=== PATIENT | female | born 1945 | race Two or more races ===

== ENCOUNTER 2018-06-29 06:20 | Inpatient (IN) | payer OTHER ==
[2018-06-29] MEDS ORDERED: QUETIAPINE FUM200 M1 (06:31)
[2018-06-29] MEDS ORDERED: DIVALPROEX SOD500 M1 (06:31)
[2018-06-29] MEDS ORDERED: CLONAZEPAM0.5 M1 (06:32)
[2018-06-29] MEDS ORDERED: SERTRALINE HCL100 MG (06:32)
[2018-06-29] MEDS ORDERED: CLONAZEPAM1 M1 (06:33)
[2018-06-29] MEDS ORDERED: SYNTHROID50 MCG (06:34)
[2018-06-29] MEDS ORDERED: FORTAMET1000 MG (06:34)
[2018-06-29] MEDS ORDERED: ATENOLOL50 MG (06:34)
[2018-06-29] MEDS ORDERED: GLIPIZIDE ER10 MG (06:34)
[2018-06-29] MEDS ORDERED: SIMVASTATIN20 MG (06:35)
== END 2018-07-03 16:01 | disposition home or self-care (01) | DRG 493 ==
LOC: ER 06:20 → SEC-K 13:00 → SURG 13:00 → O/R 15:56 → SURG 17:28
PROVIDERS: Orthopaedic Surgery; ADMIT Internal Medicine
PROC: 30233N1 Transfusion of Nonautologous Red Blood Cells into Peripheral Vein, Percutaneous Approach (ICD-10-PCS; 2018-06-29)
PROC: 0PHG36Z Insertion of Intramedullary Internal Fixation Device into Left Humeral Shaft, Percutaneous Approach (ICD-10-PCS; 2018-06-30)
PROC: 0PBB0ZZ Excision of Left Clavicle, Open Approach (ICD-10-PCS; 2018-06-30)
PROC: 0LS40ZZ Reposition Left Upper Arm Tendon, Open Approach (ICD-10-PCS; 2018-06-30)
PROC: 0RQK0ZZ Repair Left Shoulder Joint, Open Approach (ICD-10-PCS; 2018-06-30)
PROC: 0PHD36Z Insertion of Intramedullary Internal Fixation Device into Left Humeral Head, Percutaneous Approach (ICD-10-PCS; principal; 2018-06-30 13:45)
DX: S42.242A 4-part fracture of surgical neck of left humerus, initial encounter for closed fracture (principal); S42.392A Other fracture of shaft of left humerus, initial encounter for closed fracture; D62 Acute posthemorrhagic anemia; S42.292A Other displaced fracture of upper end of left humerus, initial encounter for closed fracture; I10 Essential (primary) hypertension; M75.102 Unspecified rotator cuff tear or rupture of left shoulder, not specified as traumatic; M19.012 Primary osteoarthritis, left shoulder; W18.39XA Other fall on same level, initial encounter; Y93.89 Activity, other specified; Y92.098 Other place in other non-institutional residence as the place of occurrence of the external cause; Y99.8 Other external cause status

== ENCOUNTER 2018-07-09 21:55 | Inpatient (IN) | payer OTHER ==
[~2018-07-09] VITALS: Ht 61 cm; Wt 5.0 kg
[~2018-07-09 21:55] MED LIST: ATENOLOL50 MG; CLONAZEPAM0.5 M1; CLONAZEPAM1 M1; DIVALPROEX SOD500 M1; FORTAMET1000 MG; GLIPIZIDE ER10 MG; QUETIAPINE FUM200 M1; SERTRALINE HCL100 MG; SIMVASTATIN20 MG; SYNTHROID50 MCG
--- NOTE | 2018-07-09 22:26 | NUR ---
PTE SE RECIBE POR CONGESTIVE HEART FAILURE REFIERE PARAMEDICO Y FAMILIAR.
--- NOTE | 2018-07-09 22:30 | NUR ---
EVALUA PTE. SE ORIENTA A PTE Y FAMILIAR SOBRE TX MEDICO. PTE Y FAMILIAR REFIEREN COMPRENDER. SE COLECTAN MUESTRAS DE LABORATORIO BAJO MEDIDAS ASEPTICAS. SE NOTIFICAN MIGUELITO X. PENDIENTE ABG Y TERAPIAS RESPIRATORIAS.
--- NOTE | 2018-07-10 03:11 | NUR ---
SE RECIBE PACIENTE DE TURNO ANTEREIOR.EN CAMA CON LAS BARANDAS ELEVADAS. CONECTADA A MONIOR CARDIACO Y OXIMETRIA.ACOMPANADA POR FAMILIAR.AREA DE VENOPUNCION ESTA LIMPIA Y SECA,CARLOTTA DE EDEMA. SOLICITADAS,HOSSEIN ORDEN MEDICA 2 UNIDADES DE PRBC.PERMISO ESTA DEBIDAMENTE FIRMADO.
--- NOTE | 2018-07-10 08:39 | NUR ---
SE RECIBE PTE DEL TURNO ANTERIOR, LETARGICA, EN CAMA NIVEL MAS BAJO LOPEZ DE IDENIFICACION Y BARANDAS ELEVADAS POR PRECAUCION, CONECADA A MONITOR CARDIACO Y OXIMETRIA DE PULSO. SE OBSERVA CON BUEN PATRON RESPIRATORIO, AL MOMENO SATURANDO 100%. H/L EN MANO RT PATENTE Y CARLOTTA DE EDEMA O ERIEMA. PTE PENDIENTE A TRANSFUNDIR 2 U DE PRBC, SE RECIBE LLAMADA DE MS TRIVEDI A LAS 8:16 AM PARA NOTIFICAR DISPONIBILIDAD DE LA MISMA. PENDIENTE A CONSULTA CON DRA CEJA.
--- NOTE | 2018-07-10 09:00 | NUR ---
SE COMIENZA TRANSFUSION DE SANDER, POR EL MOMENTO PTE TOLERA LA MISMA Y NO PRESENTA SIGNOS O SINTOMAS DE REACCION ADVERSA.
== END 2018-07-19 16:52 | disposition home or self-care (01) | DRG 811 ==
LOC: ER 21:55 → ICU-2 07-10 09:52 → SEC-K 07-10 09:52 → ICU-2 07-10 11:21 → SEC-K 07-15 12:18 → MEDI 07-15 13:24
PROVIDERS: ADMIT Internal Medicine
PROC: BW40ZZZ Ultrasonography of Abdomen (ICD-10-PCS; 2018-07-10)
PROC: 30233N1 Transfusion of Nonautologous Red Blood Cells into Peripheral Vein, Percutaneous Approach (ICD-10-PCS; 2018-07-10)
PROC: 3E0F7GC Introduction of Other Therapeutic Substance into Respiratory Tract, Via Natural or Artificial Opening (ICD-10-PCS; 2018-07-10)
PROC: 4A033R1 Measurement of Arterial Saturation, Peripheral, Percutaneous Approach (ICD-10-PCS; principal; 2018-07-12)
PROC: B246ZZZ Ultrasonography of Right and Left Heart (ICD-10-PCS; 2018-07-12)
PROC: BW24ZZZ Computerized Tomography (CT Scan) of Chest and Abdomen (ICD-10-PCS; 2018-07-15)
DX: D62 Acute posthemorrhagic anemia (principal); J80 Acute respiratory distress syndrome; J18.1 Lobar pneumonia, unspecified organism; F23 Brief psychotic disorder; B37.49 Other urogenital candidiasis; Z99.81 Dependence on supplemental oxygen; I10 Essential (primary) hypertension; E11.9 Type 2 diabetes mellitus without complications; Z79.4 Long term (current) use of insulin; E66.01 Morbid (severe) obesity due to excess calories; E03.9 Hypothyroidism, unspecified; E78.2 Mixed hyperlipidemia

== ENCOUNTER 2020-09-12 10:42 | Inpatient (IN) | payer OTHER ==
[~2020-09-12] VITALS: Ht 167.6 cm; Wt 76.7 kg
[2020-09-12] MEDS ORDERED: SEROQUEL200 MG (10:59)
[2020-09-12] MEDS ORDERED: ACID REDUCER20 M1 (11:00)
[2020-09-13] MEDS ORDERED: OMEPRAZOLE20 MG (08:04)
[2020-09-13] MEDS ORDERED: FOLIC ACID1 MG (08:04)
[2020-09-13] MEDS ORDERED: RESTORIL30 MG (08:04)
== END 2020-09-18 20:03 | DRG 481 ==
LOC: ER 10:42 → SURG 16:44
PROVIDERS: Orthopaedic Surgery Sports Medicine; ADMIT Internal Medicine; ATTEND Internal Medicine
PROC: 0HQ1XZZ Repair Face Skin, External Approach (ICD-10-PCS; 2020-09-12)
PROC: B020ZZZ Computerized Tomography (CT Scan) of Brain (ICD-10-PCS; 2020-09-12)
PROC: 30233N1 Transfusion of Nonautologous Red Blood Cells into Peripheral Vein, Percutaneous Approach (ICD-10-PCS; 2020-09-13)
PROC: 0PSJ04Z Reposition Left Radius with Internal Fixation Device, Open Approach (ICD-10-PCS; principal; 2020-09-13 17:00)
PROC: 0QS704Z Reposition Left Upper Femur with Internal Fixation Device, Open Approach (ICD-10-PCS; 2020-09-14)
DX: S72.142A Displaced intertrochanteric fracture of left femur, initial encounter for closed fracture (principal); S52.512A Displaced fracture of left radial styloid process, initial encounter for closed fracture; N39.0 Urinary tract infection, site not specified; S01.112A Laceration without foreign body of left eyelid and periocular area, initial encounter; D64.9 Anemia, unspecified; I10 Essential (primary) hypertension; E11.9 Type 2 diabetes mellitus without complications; F20.9 Schizophrenia, unspecified; G30.9 Alzheimer's disease, unspecified; F02.80 Dementia in other diseases classified elsewhere, unspecified severity, without behavioral disturbance, psychotic disturbance, mood disturbance, and anxiety; Z79.84 Long term (current) use of oral hypoglycemic drugs; Z20.822 Contact with and (suspected) exposure to COVID-19